=== PATIENT | female | born 1975 | race Caucasian/White ===

== ENCOUNTER 2016-08-14 08:00 | Outpatient (RCR) | payer BC | END 2016-09-18 12:00 | disposition home or self-care (01) | LOC: PT 08:00 | PROVIDERS: ATTEND Family Medicine | DX: M25.552 Pain in left hip (principal); M54.5 Low back pain ==

== ENCOUNTER → 2016-08-22 | Outpatient (CLI) | payer BC | LOC: RAD 15:26 | PROVIDERS: ATTEND Family Medicine | DX: M25.552 Pain in left hip (principal); M54.5 Low back pain | CPT/HCPCS: 72100; 73502 ==